=== PATIENT | male | born 1950 | race Caucasian/White ===

== ENCOUNTER 2019-12-21 14:08 | Outpatient (CLI) | payer OTHER ==
--- NOTE | 2019-12-21 15:28 | MRI ---
MRI OF THE LEFT SHOULDER PERFORMED WITHOUT CONTRAST ENHANCEMENT: 12/21/19 HISTORY: Left shoulder pain. Some arthrosis of the AC joints. There is some artifact which would be compatible with recent surgery in the region of the acromion AC joint area. The supra as well as infraspinatus tendons are intact with some mild tendinosis change. The subscapularis muscle tendon are intact and the biceps tendon is normal in position within the bic ipital groove. Bicipital labral complex shows slightly irregular to the superior labrum directly posterior to the bi ceps anchor. This probably represents undersurface fraying. There is effacement of the subcortical fa t and fat in the rotator cuff interval. There is also some edema change in the region of the axillary pouch. Anterior glenohumeral ligament is intact. IMPRESSION: 1. No evidence of rotator cuff tear. There are tendinopathy changes present. 2. Findings compatible with a capsulitis. 3. Postop changes of the shoulder. Micrometallic artifact in the AC joint region. 4. Slightly irregular appearance to the undersurface of the superior labrum directly posterior t o the biceps anchor probably related to fraying. POS: [facility]
== END 2019-12-21 14:09 | disposition home or self-care (01) ==
LOC: BICMRI 14:08
PROVIDERS: ATTEND Family Medicine
DX: M12.812 Other specific arthropathies, not elsewhere classified, left shoulder (principal); Z98.890 Other specified postprocedural states

== ENCOUNTER 2021-03-12 08:31 | Outpatient (CLI) | payer OTHER ==
[2021-03-12 10:26] LABS: Hemoglobin 13.2 g/dL (13.5-17.5); Mean Corpuscular HGB CONC 34.1 g/dL (32.0-36.0); Mean Corpuscular Hemoglobin 32.1 pg (27.0-33.0); Mean Corpuscular Volume 94.2 fl (81.2-95.1); Mean Platelet Volume 9.8 fl (7.4-10.4); Platelet Count 206 10x3/uL (150-450); RBC Distribution Width 13.2 % (11.5-14.5); Red Blood Cell (RBC) Count 4.11 10x6/uL (4.32-5.72); White Blood Cell (WBC) Count 5.9 10x3/uL (3.5-10.5)
[2021-03-12 11:10] LABS: MDiff Complete? YES
[2021-03-12 11:16] LABS: Eosinophils 4 % (0-10); Lymphocytes 17 % (21-51); Monocytes 11 % (0-10); Neutrophil 67 % (42-75); Platelet Morphology Comment Appears Adequate
[2021-03-12 11:18] LABS: RBC Morphology Normal
[2021-03-12 17:23] LABS: SARS-CoV-2 PCR by NAA DETECTED (NotDetected)
== END 2021-03-12 08:32 | disposition home or self-care (01) ==
LOC: LABBT 08:31
PROVIDERS: ATTEND Orthopaedic Surgery Hand Surgery
DX: Z01.818 Encounter for other preprocedural examination (principal); U07.1 COVID-19
CPT/HCPCS: 85025; 93005; 93010; U0003; U0005

== ENCOUNTER 2024-05-17 05:42 | Day surgery (SDC) | payer OTHER ==
[2024-05-15 15:15] VITALS: BMI 20.9
[~2024-05-17 05:42] MED LIST: EPINEPHrine 0.3 MG in Ophthalmic Irrigation Solution 500 ML IRR SCH
[2024-05-17] MEDS ORDERED: PHENYLephrine 2.5% Ophth Soln 15 ml Bottle ONE (05:55)
[2024-05-17] MEDS ORDERED: Cyclopentolate 1% Opth Drop 2 ML BOT ONE (05:55)
[2024-05-17] MEDS ORDERED: Midazolam HCl 2 mg/2 ml Vial ONE (06:36)
[2024-05-17] MEDS ORDERED: Ondansetron PF 4 MG/2 ML Vial ONE (06:58)
[2024-05-17] MEDS ORDERED: Dexamethasone 20 MG/5 ML VIAL ONE (06:58)
[2024-05-17] MEDS ORDERED: Lidocaine 4% PF 5 ML AMP ONE (06:58)
[2024-05-17] MEDS ORDERED: Maxitrol 0.1% Opth Oint 3.5 GM TUBE ONE (06:58)
[2024-05-17] MEDS ORDERED: Dexamethasone 4 mg/ml Vial ONE (06:58)
[2024-05-17] MEDS ORDERED: Bupivacaine 0.75% 10 ML VIAL ONE (06:58)
[2024-05-17] MEDS ORDERED: Lidocaine 1% PF 5 ML VIAL ONE (06:58)
[2024-05-17] MEDS ORDERED: PROPOFOL 200 MG/20 ML VIAL ONE (06:58)
[2024-05-17] MEDS ORDERED: CEFAZOLIN 1 GM VIAL ONE (06:58)
== END 2024-05-17 09:00 | disposition home or self-care (01) ==
LOC: SDC 05:42
PROVIDERS: ATTEND Ophthalmology Retina Specialist
PROC: 08T53ZZ Resection of Left Vitreous, Percutaneous Approach (ICD-10-PCS; principal; 2024-05-17)
DX: H43.312 Vitreous membranes and strands, left eye (principal); Z98.41 Cataract extraction status, right eye; Z98.42 Cataract extraction status, left eye; Z91.014 Allergy to mammalian meats
CPT/HCPCS: 67036; J0171; J2250; J0690; J1100; J2405; J2704; J3490